=== PATIENT | female | born 1955 | race American Indian/Alaskan Native ===

== ENCOUNTER 2018-03-25 03:30 | Emergency (ER) | payer MEDICARE ==
--- NOTE | 2018-03-25 07:57 | Emergency Department Report ---
ED Neck Pain/Injury HPI - General Chief Complaint: Extremity Injury, Upper Stated Complaint: SHOULDER PAIN Time Seen by Provider: 03/25/18 07:48 Mode of arrival: Ambulatory Limitations: No Limitations - History of Present Illness Initial Comments: 62-year-old female past medical history hypertension, diabetes, obesity presents with complaint of acute on chronic left upper shoulder discomfort. States she has been feeling this episodes since yesterday. Denies any falls or direct trauma. Patient is awake alert and oriented 3 fully lucid. Denies any associated diaphoresis shortness of breath headache blurry vision chest pain. Denies any abdominal pain nausea vomiting up her lower extremity paresthesias. Patient is visibly ranging her left shoulder but states that when she tilts her head to the left or turns her head to the left or shrugs her left shoulder it is uncomfortable. MD Complaint: neck pain Onset/Timin -: days(s) Place: home Radiation: left lateral, left shoulder Severity: moderate Severity scale (0 -10): 6 Quality: aching, other ("tight") Consistency: intermittent Improves With: none Worsens With: none Treatments Prior to Arrival: none - Related Data Previous Rx's Medication Instructions Recorded Last Taken Type Cyclobenzaprine [Flexeril] 10 mg PO TID PRN #10 tablet 03/25/18 Unknown Rx Ibuprofen [Motrin] 800 mg PO Q8HR PRN #20 tablet 03/25/18 Unknown Rx Allergies Allergy/AdvReac Type Severity Reaction Status Date / Time No Known Allergies Allergy Unverified 03/25/18 07:19 ED Review of Systems ROS: Stated complaint: SHOULDER PAIN Other details as noted in HPI Constitutional: denies: chills, fever Eyes: denies: eye pain, eye discharge, vision change ENT: denies: ear pain, throat pain Respiratory: denies: cough, shortness of breath, wheezing Cardiovascular: denies: chest pain, palpitations Endocrine: no symptoms reported Gastrointestinal: denies: abdominal pain, nausea, diarrhea Genitourinary: denies: urgency, dysuria, discharge Musculoskeletal: as per HPI. denies: back pain, joint swelling, arthralgia Skin: denies: rash, lesions Neurological: denies: headache, weakness, paresthesias Psychiatric: denies: anxiety, depression Hematological/Lymphatic: denies: easy bleeding, easy bruising ED Past Medical Hx - Past Medical History Previous Medical History?: No - Surgical History Past Surgical History?: No - Social History Smoking Status: Never Smoker Substance Use Type: None - Medications Home Medications: Home Medications Medication Instructions Recorded Confirmed Last Taken Type Cyclobenzaprine [Flexeril] 10 mg PO TID PRN #10 tablet 03/25/18 Unknown Rx Ibuprofen [Motrin] 800 mg PO Q8HR PRN #20 tablet 03/25/18 Unknown Rx ED Physical Exam - General Limitations: No Limitations General appearance: alert, in no apparent distress - Head Head exam: Present: atraumatic, normocephalic - Eye Eye exam: Present: normal appearance, PERRL, EOMI Pupils: Present: normal accommodation - ENT ENT exam: Present: mucous membranes moist - Neck Neck exam: Present: normal inspection, full ROM (flexion and extension lateral rotation intact pain with some left lateral neck rotation), other (no midline tenderness on palpation of neck) - Respiratory Respiratory exam: Present: normal lung sounds bilaterally. Absent: respiratory distress - Cardiovascular Cardiovascular Exam: Present: regular rate, normal rhythm. Absent: systolic murmur, diastolic murmur, rubs, gallop - GI/Abdominal GI/Abdominal exam: Present: soft, normal bowel sounds - Extremities Exam Extremities exam: Present: normal inspection - Expanded Upper Extremity Exam Left Shoulder Exam: Present: full ROM (internal and external rotation abduction and abduction intact), tenderness (reproducible tenderness overlying the left trapezius region on deep palpation, shoulder shrug intact) Upper Arm exam: Present: normal inspection, full ROM Elbow exam: Present: normal inspection, full ROM Forearm Wrist exam: Present: normal inspection, full ROM Hand Wrist exam: Present: normal inspection, full ROM Neuro motor exam: Present: wrist extension intact, thumb opposition intact, thumb IP flexion intact, thumb adduction intact, fingers 2-5 abduction intact Neurosensory exam: Present: radial nerve intact, ulnar nerve intact, median nerve intact Vascular: Present: normal capillary refill, radial pulse (distal pulses strong to palpation), brachial pulse, ulnar pulse - Back Exam Back exam: Present: normal inspection - Neurological Exam Neurological exam: Present: alert, oriented X3, CN II-XII intact, normal gait - Expanded Neurological Exam Expanded Patient oriented to: Present: person, place, time Cranial nerves: EOM's Intact: Normal, Facial Sensation: Normal Cerebellar function: Finger to Nose: Normal, Heel to Hicks: Normal, Romberg: Normal Sensory exam: Upper Extremity Light Touch: Normal, Lower Extremity Light Touch: Normal Motor strength exam: RUE: 5, LUE: 5, RLE: 5, LLE: 5 Best Eye Response ([place]): (4) open spontaneously Best Motor Response ([place]): (6) obeys commands Best Verbal Response ([place]): (5) oriented [place] Total: 15 - Psychiatric Psychiatric exam: Present: normal affect, normal mood - Skin Skin exam: Present: warm, dry, intact, normal color. Absent: rash ED Course Vital Signs 03/25/18 03/25/18 03/25/18 05:41 07:19 08:40 Temperature 98.3 F 98.3 F Pulse Rate 107 H 102 H Respiratory 20 20 18 Rate Blood Pressure 153/89 153/89 Blood Pressure [Left] O2 Sat by Pulse 99 99 Oximetry 03/25/18 09:58 Temperature Pulse Rate 98 H Respiratory 18 Rate Blood Pressure Blood Pressure 146/89 [Left] O2 Sat by Pulse Oximetry ED Medical Decision Making - Medical Decision Making A/P: Musculoskeletal left shoulder pain, torticollis versus cervical radiculopathy 1- Flexeril and Motrin when necessary 2- x-rays consistent with degenerative osteoarthritic changes of the C-spine and left shoulder. ROM neck and left shoulder intact on physical exam, strength 5/5 LUE, distal pulses strong to palpation 3- Patient denies any associated shortness of breath diaphoresis chest pain palpitations nausea vomiting or abdominal pain. Denies any headache blurry vision or paresthesias otherwise. 4- follow-up with primary care and orthopedics Critical care attestation.: If time is entered above; I have spent that time in minutes in the direct care of this critically ill patient, excluding procedure time. ED Disposition Clinical Impression: Left shoulder pain Qualifiers: Chronicity: chronic Qualified Code(s): M25.512 - Pain in left shoulder Disposition: TO HOME OR SELFCARE Is pt being admited?: No Does the pt Need Aspirin: No Condition: Stable Instructions: Osteoarthritis (ED), Spasmodic Torticollis (ED), Musculoskeletal Pain (ED), Arthralgia (ED) Prescriptions: Cyclobenzaprine [Flexeril] 10 mg PO TID PRN #10 tablet PRN Reason: Muscle Spasm Ibuprofen [Motrin] 800 mg PO Q8HR PRN #20 tablet PRN Reason: Pain Referrals: [facility] [Outside] - 3-5 Days SHADI ALFARO MD [Staff Physician] - 3-5 Days DHAVAL FARRAR MD [Staff Physician] - 3-5 Days Forms: Accompanied Note, Work/School Release Form(ED) Time of Disposition: 09:58
[2018-03-25] MEDS ORDERED: NORCO 5/325 PO ONE (08:09)
--- NOTE | 2018-03-25 08:55 | XRay Report ---
LEFT SHOULDER, 3 views: History: Left shoulder pain. Findings: No comparison. Normal bone mineralization. Mild osteoarthritic changes are identified at the acromioclavicular joint. Moderate to severe osteoarthritic changes are identified at the left glenohumeral joint. There is no evidence for fracture, dislocation or bone lesion. The humeral head is slightly low riding with respect to the glenoid which could indicate laxity of the joint or joint effusion. The soft tissues are within normal limits otherwise. IMPRESSION: No acute process identified. Osteoarthritic changes as described. Probable joint effusion.
--- NOTE | 2018-03-25 08:56 | XRay Report ---
CERVICAL SPINE, 3 views: History: Neck pain. Findings: The vertebral bodies, disk spaces, posterior elements and prevertebral soft tissues intact. No acute fracture or malalignment is identified. Moderate degenerative disc disease is identified at C4-5, C5-6 and C6-7. Bridging or near bridging anterior osteophytes are identified at this levels. The facet joints are unremarkable. The prevertebral soft tissues are normal thickness. Impression: Cervical spondylosis.
[2018-03-25 10:00] VITALS: BP 146/89
== END 2018-03-25 10:19 | disposition home or self-care (01) ==
LOC: ED 03:30
DX: M25.512 Pain in left shoulder (principal); G89.29 Other chronic pain
CPT/HCPCS: 72040; 99283